=== PATIENT | male | born 2000 ===

== ENCOUNTER 2024-02-10 17:21 | Emergency (ER) | payer MEDICAID ==
[~2024-02-10] VITALS: Ht 185.4 cm; Wt 127.3 kg
[2024-02-10 17:28] VITALS: BP 126/78; TEMP 98.3
[2024-02-10 18:01] VITALS: PULSE 74
== END 2024-02-10 18:02 | disposition home or self-care (01) ==
LOC: COL.ER 17:21
DX: S61.210A Laceration without foreign body of right index finger without damage to nail, initial encounter (principal); F17.200 Nicotine dependence, unspecified, uncomplicated; W22.8XXA Striking against or struck by other objects, initial encounter; Y93.39 Activity, other involving climbing, rappelling and jumping off